=== PATIENT | female | born 2000 | race Caucasian/White ===

== ENCOUNTER 2022-12-26 10:37 | Inpatient (IN) | payer OTHER ==
[2022-12-26 10:54] VITALS: BMI 18.2
[2022-12-26] MEDS ORDERED: SODIUM CHLORIDE 1,633 ML IV ONE (11:10)
[2022-12-26] MEDS ORDERED: ACETAMINOPHEN 1000 MG/100 ML BAG IVPB ONE (11:12)
[2022-12-26] MEDS ORDERED: FAMOTIDINE 20 MG/50 ML IVPB 20 MG/50 ML MG IVPB ONE (11:12)
[2022-12-26] MEDS ORDERED: ONDANSETRON 4 MG/2 ML VIAL IVPUSH ONE ×2 (11:59→20:36)
[2022-12-26] MEDS ORDERED: ONDANSETRON 4 MG/2 ML VIAL ONE ×2 (12:21→20:37)
[2022-12-26] MEDS ORDERED: CEFTRIAXONE 1,000 MG in DEXTROSE 5%-WATER - 50 ML IVPB ONE (12:32)
[2022-12-26 12:33] LABS: BASO % 0.3 % (0-2.0); HEMATOCRIT 36.2 % (32.4-45.2); HEMOGLOBIN 12.1 GM/dL (10.7-15.3); LYMPH % 3.7 % (8-40); MCH 29.2 pg (25.7-33.7); MCHC 33.4 g/dl (32.0-36.0); MEAN CELL VOLUME 87.5 fl (80-96); MEAN PLT VOLUME 8.3 fl (7.5-11.1); MONO % 8.2 % (3.8-10.2); NEUT % 87.8 % (42.8-82.8); PLATELET COUNT 203 10^3/uL (134-434); RBC 4.14 M/mm3 (3.60-5.2); RDW 12.5 % (11.6-15.6)
[2022-12-26] MEDS ORDERED: CEFTRIAXONE 1 GM/50 ML BAG ONE (12:38)
[2022-12-26 12:40] LABS: INR 1.29 (0.83-1.09); PROTHROMBIN TIME (PATIENT) 14.9 SEC (9.7-13.0)
[2022-12-26 12:42] LABS: ACTIVATED PTT 29.9 SECONDS (25.2-36.5)
[2022-12-26 13:11] LABS: CHLORIDE 107 mmol/L (98-107); SODIUM 139 mmol/L (136-145)
[2022-12-26 13:14] LABS: ALBUMIN 3.4 g/dl (3.4-5.0); ANION GAP 11 MMOL/L (8-16); BLOOD UREA NITROGEN 8.9 mg/dL (7-18); CO2 21 mmol/L (21-32); GLUCOSE,RANDOM 107 mg/dL (74-106); LIPASE 45 U/L (73-393)
[2022-12-26 13:17] LABS: CREATININE 0.8 mg/dL (0.55-1.3); SGOT/AST 19 U/L (15-37); SGPT/ALT 20 U/L (13-61)
[2022-12-26 13:18] LABS: BILIRUBIN,TOTAL 0.5 mg/dL (0.2-1)
[2022-12-26 13:19] LABS: TOT PROT 6.5 g/dl (6.4-8.2)
[2022-12-26 13:20] LABS: ALK PHOS 63 U/L (45-117)
[2022-12-26 15:28] LABS: EPI CELLS >36 /uL (0-25.1); HYALINE CASTS 1 /uL (0-3.1); PH,URINE 7.5 (5.0-8.0); URINE APPEARANCE CLEAR; URINE BACTERIA 37 /uL (0-1359); URINE BILIRUBIN NEGATIVE (NEGATIVE); URINE COLOR YELLOW; URINE GLUCOSE (UA) NEGATIVE (NEGATIVE); URINE KETONE 3+ (NEGATIVE); URINE LEUK ESTERASE NEGATIVE (NEGATIVE); URINE NITRITE NEGATIVE (NEGATIVE); URINE PROTEIN 2+ (NEGATIVE); URINE RBC 30 /uL (0-23.9); URINE UROBILINOGEN 0.2 mg/dL (0.2-1.0)
[2022-12-26] MEDS ORDERED: LACTATED RINGERS SOLUTION 1,000 ML/1,000 ML INFUS.BAG IV SCH (16:45)
[2022-12-26] MEDS ORDERED: ACETAMINOPHEN 500 MG TABLET (FP) ONE (19:38)
[2022-12-26] MEDS: ACETAMINOPHEN 500 MG TABLET (FP) PO PRN (19:46)
[2022-12-26] MEDS ORDERED: KETOROLAC TROMETHAMINE 15 MG/ML VIAL IVPUSH ONE (21:20)
[2022-12-26] MEDS ORDERED: MELATONIN 5 MG TABLETS PO ONE (21:29)
[2022-12-26] MEDS ORDERED: MELATONIN 5 MG TABLETS ONE (21:41)
[2022-12-26] MEDS ORDERED: KETOROLAC TROMETHAMINE 15 MG/ML VIAL ONE (21:41)
[2022-12-27] MEDS: ACETAMINOPHEN 500 MG TABLET (FP) PO PRN ×2 (01:04→16:51)
[2022-12-27 07:07] LABS: BASO % 0.2 % (0-2.0); EOS % 0.7 % (0-4.5); HEMATOCRIT 31.4 % (32.4-45.2); HEMOGLOBIN 10.6 GM/dL (10.7-15.3); LYMPH % 14.2 % (8-40); MCH 29.6 pg (25.7-33.7); MCHC 33.6 g/dl (32.0-36.0); MEAN CELL VOLUME 88.2 fl (80-96); MEAN PLT VOLUME 8.2 fl (7.5-11.1); MONO % 11.8 % (3.8-10.2); NEUT % 73.1 % (42.8-82.8); PLATELET COUNT 177 10^3/uL (134-434); RBC 3.56 M/mm3 (3.60-5.2); RDW 13.2 % (11.6-15.6); WHITE BLOOD COUNT 9.8 K/mm3 (4.0-10.0)
[2022-12-27 07:48] LABS: POTASSIUM 3.8 mmol/L (3.5-5.1)
[2022-12-27 07:54] LABS: BLOOD UREA NITROGEN 8.8 mg/dL (7-18)
[2022-12-27 07:55] LABS: CALCIUM 8.5 mg/dL (8.5-10.1)
[2022-12-27 07:57] LABS: CREATININE 0.5 mg/dL (0.55-1.3)
[2022-12-27] MEDS ORDERED: ONDANSETRON 4 MG/2 ML VIAL IVPUSH ONE (09:26)
[2022-12-27] MEDS ORDERED: ACETAMINOPHEN 1000 MG/100 ML BAG IVPB ONE (09:26)
[2022-12-27] MEDS ORDERED: CEFTRIAXONE 1 GM/50 ML BAG ONE (09:48)
[2022-12-27] MEDS ORDERED: ACETAMINOPHEN INJECTION 100 ML IVPB ONE (09:49)
[2022-12-27] MEDS ORDERED: ONDANSETRON 4 MG/2 ML VIAL ONE (09:49)
[2022-12-27] MEDS: CEFTRIAXONE 1 GM in DEXTROSE 5%-WATER - 50 ML IVPB SCH (10:33)
[2022-12-27] MEDS: ELECTROLYTE-148 SOLN 1,000 ML IV SCH (19:17)
[2022-12-27] MEDS ORDERED: MELATONIN 5 MG TABLETS PO SCH (22:00)
[2022-12-28 00:25] VITALS: RESP 18
[2022-12-28] MEDS: ELECTROLYTE-148 SOLN 1,000 ML IV SCH (05:48)
[2022-12-28 09:48] LABS: BASO % 0.2 % (0-2.0); EOS % 0.3 % (0-4.5); HEMATOCRIT 31.5 % (32.4-45.2); HEMOGLOBIN 10.6 GM/dL (10.7-15.3); LYMPH % 15.9 % (8-40); MCH 29.1 pg (25.7-33.7); MCHC 33.8 g/dl (32.0-36.0); MEAN CELL VOLUME 86.1 fl (80-96); MEAN PLT VOLUME 7.3 fl (7.5-11.1); MONO % 10.4 % (3.8-10.2); NEUT % 73.2 % (42.8-82.8); PLATELET COUNT 260 10^3/uL (134-434); RBC 3.65 M/mm3 (3.60-5.2); RDW 13.5 % (11.6-15.6); WHITE BLOOD COUNT 9.1 K/mm3 (4.0-10.0)
[2022-12-28 09:52] LABS: INR 1.19 (0.83-1.09); PROTHROMBIN TIME (PATIENT) 13.8 SEC (9.7-13.0)
[2022-12-28 09:54] LABS: ACTIVATED PTT 28.9 SECONDS (25.2-36.5)
[2022-12-28] MEDS ORDERED: ENOXAPARIN NA (PORCINE) 40 MG/0.4 ML DISP.SYRIN SQ SCH (10:00)
[2022-12-28 10:05] LABS: BLOOD UREA NITROGEN 5.3 mg/dL (7-18); CALCIUM 8.7 mg/dL (8.5-10.1); MAGNESIUM 2.3 mg/dL (1.8-2.4)
[2022-12-28 10:06] LABS: ALBUMIN 2.9 g/dl (3.4-5.0)
[2022-12-28 10:08] LABS: CREATININE 0.6 mg/dL (0.55-1.3); PHOSPHOROUS 4.2 mg/dL (2.5-4.9)
[2022-12-28 10:10] LABS: BILIRUBIN,TOTAL 0.5 mg/dL (0.2-1); TOT PROT 6.2 g/dl (6.4-8.2)
[2022-12-28] MEDS: CEFTRIAXONE 1 GM in DEXTROSE 5%-WATER - 50 ML IVPB SCH (10:13)
[2022-12-28 10:54] VITALS: BP 117/68; PULSE 78; TEMP 98.5
== END 2022-12-28 14:52 | disposition home or self-care (01) | DRG 872 ==
LOC: JER 10:37 → JERBED 16:14 → J5S 12-27 14:03
PROVIDERS: ADMIT Internal Medicine; ATTEND Internal Medicine
DX: A41.89 Other specified sepsis (principal); N12 Tubulo-interstitial nephritis, not specified as acute or chronic; Q23.0 Congenital stenosis of aortic valve; N20.0 Calculus of kidney; D72.829 Elevated white blood cell count, unspecified; R50.9 Fever, unspecified; Z86.79 Personal history of other diseases of the circulatory system
CPT/HCPCS: 0241U-QW; 36415; 71045-TC-FY; 74177-TC; 80048; 80053; 81003; 82550; 82553; 83605; 83690; 83735; 84100; 84703; 85025; 85027; 85610; 85730; 86850; 86900; 86901; 87040; 87086; 93005; 93010; 99285-25; Q9967